=== PATIENT | male | born 1945 | race Caucasian/White ===

== ENCOUNTER 2017-02-05 07:24 | Day surgery (SDC) | payer MEDICARE, BC ==
[2017-02-05] MEDS ORDERED: Midazolam 1 MG/ML 2 ML SDV ONE (07:29)
[2017-02-05] MEDS ORDERED: fentaNYL 100 MCG/2 ML SDV ONE (07:29)
[2017-02-05] MEDS ORDERED: Propofol 200 MG/20 ML SDV ONE (07:29)
[2017-02-05] MEDS ORDERED: Lactated Ringers 1,000 ML IV SCH (08:00)
[2017-02-05] MEDS ORDERED: Sodium Chloride 0.9% 1,000 ML IV SCH (08:30)
[2017-02-05 11:05] VITALS: BP 144/96
--- NOTE | 2017-02-06 08:20 | OR ---
DATE OF PROCEDURE: 02/05/2017 PROCEDURE: Colonoscopy. FINDINGS: 1. Incomplete colonoscopy due to large amount of solid retained stool. 2. Diverticulosis. 3. Colonoscopy to approximately sigmoid colon, terminated due to retained stool. RISKS: Risks, benefits, alternatives, limitations including, but not limited to infection, bleeding, and perforation were explained to the patient prior to the procedure. PREOPERATIVE DIAGNOSIS: Screening colonoscopy. POSTOPERATIVE DIAGNOSIS: Screening colonoscopy. PROCEDURE IN DETAIL: The patient was placed in left lateral decubitus position. Digital rectal exam was performed without abnormality. The scope was introduced and advanced. Medially, there was noted to be a large amount of solid stool in combination with liquid stool, but mostly solid. This was unable to be advanced past. Multiple suction irrigation techniques were attempted, but over the next 15 minutes approximately, the scope was unable to be advanced. Of note, the scope was never advanced blindly at any time. Procedure was terminated. The patient will be rescheduled with a different colon prep. Baldo Meza MD /[id number]
== END 2017-02-05 11:00 | disposition home or self-care (01) ==
LOC: JP.SDS 07:24
PROVIDERS: ATTEND Surgery
DX: Z12.11 Encounter for screening for malignant neoplasm of colon (principal); K57.30 Diverticulosis of large intestine without perforation or abscess without bleeding; Z87.891 Personal history of nicotine dependence; Z98.890 Other specified postprocedural states
CPT/HCPCS: 45330; J2250; J2704; J3010; J7040

== ENCOUNTER 2017-02-06 06:40 | Day surgery (SDC) | payer MEDICARE, BC ==
[2017-02-06] MEDS ORDERED: Propofol 200 MG/20 ML SDV ONE (07:26)
[2017-02-06] MEDS ORDERED: fentaNYL 100 MCG/2 ML SDV ONE (07:26)
[2017-02-06] MEDS ORDERED: Midazolam 1 MG/ML 2 ML SDV ONE (07:27)
[2017-02-06] MEDS ORDERED: Sodium Chloride 0.9% 1,000 ML IV SCH (07:30)
[2017-02-06 11:05] VITALS: BP 146/86
--- NOTE | 2017-02-06 14:29 | OR ---
DATE OF PROCEDURE: 02/06/2017 PROCEDURE: Colonoscopy. FINDINGS: 1. Extensive diverticulosis noted in the sigmoid colon. 2. No other gross abnormalities. RISKS: Risks, benefits, alternatives, limitations including, but not limited to infection, bleeding, perforation and other risks not listed here. PREOPERATIVE DIAGNOSIS: Screening colonoscopy. POSTOPERATIVE DIAGNOSIS: Screening colonoscopy. PROCEDURE IN DETAIL: The patient was placed in left lateral decubitus position. Digital rectal exam was performed without abnormality. The scope was introduced and advanced atraumatically to the ileocecal valve. The scope was brought back to the ascending, transverse, descending colon, and retroflexed. No polyps. No old or new blood. The patient had diverticulosis, which is moderate to significant but limited to sigmoid colon. No abnormalities on retroflexion. The patient tolerated the procedure well. Baldo Meza MD /[id number]
--- NOTE | 2017-02-06 14:37 | LETTER ---
02/06/2017 Mr. Flakito Huang [id number] [place] [address] RE: FLAKITO HUANG : 1945 Dear Mr. Huang: I am writing this letter in regards to your recent colonoscopy. As we discussed after the procedure, your colonoscopy showed diverticulosis. This disease occurs due to weakness in the colon wall due to a high fat diet. This disease is incredibly common in the [place]. Rarely, the diverticula become infected causing colon problems, which we call diverticulitis. Signs include a severe change in bowel function (not occasional constipation), fever, and pain in the left lower part of the abdomen. If this would occur, you should report to your closest emergency room. Again, this is rare, and will probably not happen to you. There was no sign of blood vessel problems or cancer. You will not need another colonoscopy for 8 years. We will send you a reminder letter in approximately 8 years, but it is your responsibility to arrange the repeat colonoscopy with your primary care physician, as people move and addresses change, etc. Also, please keep in mind that no test is perfect and colonoscopies are no exception. In fact, they can miss up to 10 percent of positive findings including colon cancer. I tell you this not to scare you, but to protect you. What to look for is ongoing bleeding, severe changes in bowel function, and unintentional weight loss. Again, I do not think you will have any problems; I just want you to be safe. One last thing I recommend is that you should be trying to eat a healthy diet that is high in fiber and low in fat. It is important to eat more fruits and vegetables, avoid smoking, limit alcohol intake, increase exercise, and increase calcium and folate intake. Foods that are rich in calcium would be most dairy products, including milk and cheese. Foods that are rich in folate are chickpeas, kidney beans, and spinach. It is okay to eat nuts, popcorn and seeds, even if someone tells you they were told not to; that information is outdated. If you have any questions, please feel free to give me or your primary doctor a call and thank you for allowing me to be your surgeon. /[id number]
== END 2017-02-06 09:45 | disposition home or self-care (01) ==
LOC: JP.SDS 06:40
PROVIDERS: ATTEND Surgery
DX: Z12.11 Encounter for screening for malignant neoplasm of colon (principal); K57.30 Diverticulosis of large intestine without perforation or abscess without bleeding
CPT/HCPCS: G0121; J2250; J2704; J3010; J7040